=== PATIENT | male | born 1960 | race Caucasian/White ===

== ENCOUNTER 2019-05-16 22:06 | Emergency (ER) | payer OTHER ==
--- NOTE | 2019-05-16 22:15 | ED ---
Lower Extremity - HPI Summary HPI Summary: 58 yo male presents with right knee pain. He tells me that over the last few weeks he has noticed right hip and right knee pain. No known injury. Today his pain worsened and is radiating from behind his right knee up into his right hip. Pain with movement of knee and hip. He has been taking ibuprofen with little relief. Denies numbness or tingling. No hx of DVT or blood clots. - History of Current Complaint Chief Complaint: EDExtremityLower Stated Complaint: RT LEG PAIN PER EMS Time Seen by Provider: 05/16/19 22:14 Hx Obtained From: Patient Severity Initially: Moderate Severity Currently: Severe Pain Intensity: 9 Pain Scale Used: 0-10 Numeric - Allergies/Home Medications Allergies/Adverse Reactions: Allergies Allergy/AdvReac Type Severity Reaction Status Date / Time amoxicillin Allergy Hives Verified 05/16/19 22:14 codeine Allergy Headache Verified 05/16/19 22:14 Home Medications: Home Medications Basaglar Kwikpen U-100 8 unit SUBCUT BEDTIME 05/16/19 [History Confirmed ] Lisinopril 10 mg PO DAILY 05/16/19 [History Confirmed 05/16/19] metFORMIN* 850 mg PO DAILY 05/16/19 [History Confirmed 05/16/19] PMH/Surg Hx/FS Hx/Imm Hx Endocrine/Hematology History: Reports: Hx Diabetes Cardiovascular History: Reports: Hx Hypertension Denies: Hx Pacemaker/ICD Respiratory History: Denies: Hx Pulmonary Embolism History: Denies: Hx Renal Disease Sensory History: Denies: Hx Hearing Aid Psychiatric History: Denies: Hx Panic Disorder - Surgical History Surgical History: Yes Surgery Procedure, Year, and Place: REMOVED SCARING FROM URINARY TRACT Infectious Disease History: No Infectious Disease History: Denies: Traveled Outside the [place] in Last 30 Days - Family History Known Family History: Positive: Diabetes - Social History Lives: With Family Alcohol Use: Occasionally Substance Use Type: Reports: None Smoking Status (MU): Current Every Day Smoker Review of Systems Constitutional: Negative Cardiovascular: Negative Respiratory: Negative Gastrointestinal: Negative Genitourinary: Negative Musculoskeletal: Other - Right hip and knee pain Skin: Negative Neurological: Negative Psychological: Normal All Other Systems Reviewed And Are Negative: No Physical Exam - Summary Physical Exam Summary: GENERAL: NAD. WDWN. No pain distress. SKIN: No rashes, sores, lesions, or open wounds. CHEST: No accessory muscle use. Breathing comfortably and in no distress. CV: Pulses intact popliteal, PT, and DP. Cap refill <2seconds MSK: RIGHT KNEE: TTP behind right knee. FROM. Strength 5/5. No edema or obvious bony deformities. No patella apprehension. Negative Owen, A/P drawer, Devyn, and varus/valgus stress. RIGHT HIP: TTP about joint. Pain in groin with movement. FROM. Positive toro for groin pain. NEURO: Alert. Sensations intact and symmetric B/L LEs PSYCH: Age appropriate behavior. Triage Information Reviewed: Yes Vital Signs On Initial Exam: Initial Vitals Temp Pulse Resp BP Pulse Ox 98.9 F 71 18 163/89 97 05/16/19 22:12 05/16/19 22:12 05/16/19 22:12 05/16/19 22:12 05/16/19 22:12 Vital Signs Reviewed: Yes Procedures - Sedation Patient Received Moderate/Deep Sedation with Procedure: No Diagnostics - Vital Signs Vital Signs Temp Pulse Resp BP Pulse Ox 05/16/19 22:12 98.9 F 71 18 163/89 97 - Laboratory Lab Statement: Any lab studies that have been ordered have been reviewed, and results considered in the medical decision making process. - Radiology Hip Radiology Interpretation Completed By: ED Physician Summary of Radiographic Findings: Arthritis. No fx. Knee Radiology Interpretation Completed By: ED Physician Summary of Radiographic Findings: No fx - Ultrasound Right leg Ultrasound Interpretation Completed By: Radiologist Summary of Ultrasound Findings: IMPRESSION: Negative right lower extremity venous duplex exam without evidence of deep venous thrombosis. Lower Extremity Course/Dx - Course Course Of Treatment: Suspect arthritic pain. In the ED he was given norco 5/325 for his discomfort with great relief. US negative for DVT. Discussed with pt. Will dc with referral to Ortho for further evaluation and treatment. Advised to rest and take tylenol as directed for pain - Diagnoses Provider Diagnoses: Hip pain, Knee pain Discharge ED - Sign-Out/Discharge Documenting (check all that apply): Patient Departure - Discharge Plan Condition: Stable Disposition: HOME Patient Education Materials: Knee Pain (ED), Hip Pain (ED) Referrals: Reddy Ruiz MD [Primary Care Provider] - Renetta Carbajal MD [Medical Doctor] - As Soon As Possible Additional Instructions: If you develop a fever, shortness of breath, chest pain, new or worsening symptoms - please call your PCP or go to the ED immediately. Your blood pressure was high at todays visit. Please see your primary provider within 4 weeks for recheck and re-evaluation. 1) Rest and continue taking tylenol as directed for your discomfort 2) I recommend that you call Orthopedics at the number below to schedule an appointment within 1 week for further evaluation of your pain - Billing Disposition and Condition Condition: STABLE Disposition: Home - Attestation Statements Provider Attestation: the patient was seen by the midlevel provider, it was determined by them that it was not necessary for me to see the patient, I was available for consult during the patient's visit in the ED. I did not establish and patient-physician relationship. The chart however has been reviewed and I am signing in an administrative capacity.
[2019-05-17] MEDS ORDERED: HYDROcodone/ACETAMIN 5-325 MG* 1 TAB PO ONE (00:03)
[2019-05-17 01:28] VITALS: BP 169/85
== END 2019-05-17 01:30 | disposition home or self-care (01) ==
LOC: ED 22:06
DX: M25.561 Pain in right knee (principal); M25.551 Pain in right hip; E11.9 Type 2 diabetes mellitus without complications; I10 Essential (primary) hypertension; F17.200 Nicotine dependence, unspecified, uncomplicated; Z79.84 Long term (current) use of oral hypoglycemic drugs; Z79.899 Other long term (current) drug therapy; Z88.5 Allergy status to narcotic agent; Z88.0 Allergy status to penicillin; M16.0 Bilateral primary osteoarthritis of hip
CPT/HCPCS: 99282

== ENCOUNTER 2023-08-24 15:40 | Inpatient (IN) ==
[2023-08-24 17:21] LABS: ALT 27 U/L (7-52); Albumin 4.4 g/dL (3.2-5.2); Albumin/Globulin Ratio 1.6 (1-3); Alkaline Phosphatase 110 U/L (35-149); Anion Gap 7 mmol/L (2-16); Blood Urea Nitrogen 26 mg/dL (6-24); CO2 Carbon Dioxide 29 mmol/L (22-32); Calcium 9.3 mg/dL (8.6-10.3); Chloride 100 mmol/L (101-111); Creatinine, Serum 0.99 mg/dL (0.67-1.17); Globulin 2.7 g/dL (2-4); Glucose 251 mg/dL (70-100); Sodium 136 mmol/L (135-145); Total Bilirubin 0.5 mg/dL (0.2-1.0); Total Protein 7.1 g/dL (6.4-8.9); eGFR CKD-EPI 86.1 (>60)
[2023-08-24 17:25] LABS: High Sens Troponin Baseline 4 pg/mL (<20)
[2023-08-24 17:26] LABS: ABS Lymphocytes 1.3 10^3/uL (1.0-4.8); ABS Monocytes 0.7 10^3/uL (0.0-1.1); ABS Nucleated RBC 0.02 10^3/ul; Eosinophil % 0.3 %; Hematocrit 44.1 % (38-53); Hemoglobin 14.8 g/dL (13.2-16.3); Lymphocyte % 16.6 %; Mean Corpuscular Hemoglobin 29.4 pg (27-33); Mean Corpuscular Hgb Conc 33.6 g/dL (31-36); Mean Corpuscular Volume 87.5 fL (80-97); Nucleated Red Blood Cells % 0.3 %/100WBC (0.0-0.8); Platelet Count 215 10^3/uL (150-450); Red Blood Count 5.04 10^6/uL (4.06-5.63); Red Cell Distribution Width 14.2 % (12-17); White Blood Count 8.1 10^3/uL (3.6-10.2)
[2023-08-24 17:27] LABS: INR 1.02 (0.83-1.13)
[2023-08-24 17:38] LABS: Lipase 31 U/L (11.0-82.0)
[2023-08-24 18:24] LABS: High Sensitivity Troponin 1 Hr 4 pg/mL (<20)
[2023-08-24 19:04] LABS: Potassium Redraw 4.3 mmol/L (3.5-5.0)
[2023-08-24] MEDS: Iodixanol (CONTRAST) 320 MG/ML 100 ML SDV IV ONE (20:15)
[2023-08-24 21:37] LABS: Urine Appearance Turbid; Urine Bilirubin Negative (Negative); Urine Blood Negative (Negative); Urine Glucose 3+ (>=300 mg/dL) (Negative); Urine Ketones Negative (Negative); Urine Nitrite Negative (Negative); Urine Protein Trace (Negative); Urine Specific Gravity 1.015 (1.002-1.030); Urine Urobilinogen Negative (Negative)
[2023-08-24 22:00] LABS: Urine Bacteria 3+ /HPF (Absent); Urine Color Light-Yellow; Urine Red Blood Cell 1+(3-5/hpf) /HPF (0-Trace); Urine Squamous Epithelial Cell Present /HPF (Absent); Urine White Blood Cell 3+(>20/hpf) /HPF (0-Trace)
[2023-08-25] MEDS ORDERED: Dextrose 50% Syringe 50 ml 25 GM/50 ML SYRINGE IV PUSH PRN (00:55)
[2023-08-25] MEDS ORDERED: Albuterol HFA INHALER 8 gm MDI INH PRN (00:55)
[2023-08-25] MEDS: cefTRIAXone 1 gm/50 mL D5W 1 GM/50 ML BAG IV SCH (05:20)
[2023-08-25 06:49] LABS: Hematocrit 36.4 % (38-53); Hemoglobin 12.3 g/dL (13.2-16.3); Mean Corpuscular Hemoglobin 29.2 pg (27-33); Mean Corpuscular Hgb Conc 33.7 g/dL (31-36); Mean Corpuscular Volume 86.7 fL (80-97); Mean Platelet Volume 9.6 fL (7.5-11.2); Platelet Count 163 10^3/uL (150-450); White Blood Count 7.6 10^3/uL (3.6-10.2)
[2023-08-25 07:05] LABS: Calcium 8.4 mg/dL (8.6-10.3); Creatinine, Serum 0.73 mg/dL (0.67-1.17); eGFR CKD-EPI 102.9 (>60)
[2023-08-25] MEDS ORDERED: Insulin GLARGINE 100 un/ml 10 ml VIAL SUBCUT SCH (09:00)
[2023-08-25] MEDS: Lactated Ringers 1000 ml BAG 1,000 ML IV SCH (09:31)
[2023-08-25] MEDS: Methylphenidate ER 18 mg TAB PO SCH (09:32)
[2023-08-25] MEDS: Acetaminophen IV 1 GM/100ML 1,000 MG/100 ML BAG IV PRN (09:32)
[2023-08-25] MEDS: Enoxaparin 40 MG/0.4 ML SYR SUBCUT SCH (11:19)
[2023-08-26] MEDS: cefTRIAXone 1 gm/50 mL D5W 1 GM/50 ML BAG IV SCH (04:22)
[2023-08-26 06:45] LABS: ABS Eosinophils 0.1 10^3/uL (0.0-0.5); ABS Lymphocytes 2.1 10^3/uL (1.0-4.8); ABS Monocytes 0.5 10^3/uL (0.0-1.1); ABS Neutrophils 2.7 10^3/uL (1.5-7.6); Hematocrit 37.2 % (38-53); Hemoglobin 12.5 g/dL (13.2-16.3); Lymphocyte % 38.8 %; Mean Corpuscular Hemoglobin 28.9 pg (27-33); Mean Corpuscular Hgb Conc 33.6 g/dL (31-36); Mean Corpuscular Volume 85.8 fL (80-97); Mean Platelet Volume 9.6 fL (7.5-11.2); Platelet Count 150 10^3/uL (150-450); Red Blood Count 4.34 10^6/uL (4.06-5.63); Red Cell Distribution Width 13.6 % (12-17); White Blood Count 5.4 10^3/uL (3.6-10.2)
[2023-08-26 07:10] LABS: Calcium 8.6 mg/dL (8.6-10.3); Creatinine, Serum 0.7 mg/dL (0.67-1.17); Magnesium 1.6 mg/dL (1.9-2.7); eGFR CKD-EPI 104.2 (>60)
[2023-08-26] MEDS: Magnesium Sulf 4 GM/100 ML IV 4,000 MG/100 ML BAG IVPB ONE (09:40)
[2023-08-26] MEDS: Metoclopramide 5 MG/ML VIAL (10 mg) IV SLOW PU ONE (12:12)
[2023-08-27 06:41] LABS: ABS Eosinophils 0.1 10^3/uL (0.0-0.5); ABS Lymphocytes 2.1 10^3/uL (1.0-4.8); ABS Monocytes 0.5 10^3/uL (0.0-1.1); ABS Neutrophils 2.9 10^3/uL (1.5-7.6); ABS Nucleated RBC 0.01 10^3/ul; Eosinophil % 1.3 %; Hemoglobin 12.3 g/dL (13.2-16.3); Lymphocyte % 37.7 %; Mean Corpuscular Hemoglobin 28.8 pg (27-33); Mean Corpuscular Hgb Conc 33.4 g/dL (31-36); Mean Corpuscular Volume 86.2 fL (80-97); Mean Platelet Volume 9.6 fL (7.5-11.2); Nucleated Red Blood Cells % 0.2 %/100WBC (0.0-0.8); Platelet Count 157 10^3/uL (150-450); Red Blood Count 4.29 10^6/uL (4.06-5.63); Red Cell Distribution Width 13.5 % (12-17); White Blood Count 5.7 10^3/uL (3.6-10.2)
[2023-08-27 06:58] LABS: Calcium 8.1 mg/dL (8.6-10.3); Creatinine, Serum 0.72 mg/dL (0.67-1.17); Magnesium 1.9 mg/dL (1.9-2.7); Potassium 3.8 mmol/L (3.5-5.0); eGFR CKD-EPI 103.3 (>60)
[2023-08-27 11:43] VITALS: BP 156/85
== END 2023-08-27 13:00 | disposition home or self-care (01) | DRG 689 ==
LOC: ED 15:40 → SUATTDRO 23:45 → EDHOLD 23:45 → MEDTELE 08-25 00:32
PROVIDERS: ADMIT Internal Medicine; ATTEND Student in an Organized Health Care Education/Training Program